=== PATIENT | male | born 1945 | race Caucasian/White ===

== ENCOUNTER 2018-02-11 11:43 | Inpatient (IN) | payer MEDICARE ==
[~2018-02-11] VITALS: Ht 170.2 cm; Wt 105.8 kg
[~2018-02-11 11:43] MED LIST: APIX5TAB PO; ASPI1TAB57 PO; ATOR20TA15 PO; CARV12.52 PO; LISI30TA4 PO; SODI325T PO; TAMS0.4C4 PO
[2018-02-11] MEDS ORDERED: DEXAMETHASONE SOD PHOS 4 MG/ML VIAL IV ONE (12:00)
[2018-02-11] MEDS ORDERED: GLYCOPYRROLATE 1 MG/5 ML SYRINGE IV PUSH ONE (12:00)
[2018-02-11] MEDS ORDERED: NORMOSOL R INJ 1,000 ML IV ONE (12:00)
[2018-02-11] MEDS ORDERED: ROCURONIUM INJ 50 MG/5 ML SYRINGE IV PUSH ONE (12:00)
[2018-02-11] MEDS ORDERED: LIDOCAINE HCL 1% PF 5 ML SYRINGE OTHER ONE (12:00)
[2018-02-11] MEDS ORDERED: PROPOFOL 200 MG/20 ML AMP IV ONE (12:00)
[2018-02-11] MEDS ORDERED: PHENYLEPH/NS 1000 MCG/10 ML SYR IV ONE (12:00)
[2018-02-11] MEDS ORDERED: ONDANSETRON HCL 4 MG/2 ML VIAL IV ONE (12:00)
[2018-02-11] MEDS ORDERED: NEOSTIGMINE 5 MG/5 ML SYRINGE IV PUSH ONE (12:00)
[2018-02-11] MEDS ORDERED: SODIUM CHLORIDE 0.9% IV SCH (12:30)
[2018-02-11] MEDS ORDERED: POVIDONE IODINE 5% (ANTISEPSIS KIT) 4 APPLICATIONS EACH NARE PRN (12:30)
[2018-02-11] MEDS ORDERED: ceFAZolin 2 GM PREMIX 50 ML IV SCH (12:30)
[2018-02-11] MEDS ORDERED: METOPROLOL TARTRATE 25 MG TAB PO PRN (12:30)
[2018-02-11] MEDS ORDERED: LACTATED RINGER'S 1000 ML IV PRN (12:30)
[2018-02-11] MEDS ORDERED: SODIUM CHLORID 0.9% 500 ML IV PRN (12:30)
[2018-02-11] MEDS ORDERED: GENTAMICIN IV SCH (12:30)
[2018-02-11] MEDS ORDERED: CHLORHEXIDINE GLUCONATE 2 % 1 PACK (2 CLOTHS) TOPICAL PRN (12:30)
[2018-02-11] MEDS ORDERED: ACETAMINOPHEN 1000 MG/100 ML 100 ML IV ONE (12:50)
[2018-02-11] MEDS ORDERED: GENTAMICIN INJ 400 MG in SODIUM CHLORIDE 0.9% INJ 100 ML IV SCH (13:00)
[2018-02-11 13:25] LABS: INTERNATIONAL NORMALIZED RATIO 1.1 RATIO; PROTHROMBIN TIME - PATIENT 11.4 SEC (9.8-11.6)
[2018-02-11] MEDS ORDERED: DO NOT ADM ANY ANTICOAGULANT DRUGS PRN (15:27)
[2018-02-11] MEDS ORDERED: MORPHINE SULFATE 4 MG/ML INJ IV PUSH PRN (15:30)
[2018-02-11] MEDS ORDERED: ONDANSETRON HCL 4 MG/2 ML VIAL IV PUSH PRN (15:30)
[2018-02-11] MEDS ORDERED: PANTOPRAZOLE SODIUM 40 MG VIAL IV PUSH SCH (15:30)
[2018-02-11] MEDS ORDERED: *morphine SULFATE 4 MG/ML PERIprocedure ONLY ONE ×3 (15:32→16:04)
--- NOTE | 2018-02-11 15:34 | MP ---
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 PROCEDURE PERFORMED: Retropubic prostatectomy for clinically benign disease. SURGEON: Dr. Adams. OFFICE 365 CONSULTANT: Dr. Willard. ANESTHESIA: General. NOTE IN DETAIL: This 73-year-old gentleman was worked up by us in our office for the above-mentioned procedures. Gradually, he had been failing more conservative measures. Ultrasonic evaluation suggested that this prostate might be a bit too big to do through an intraurethral approach, so a retropubic prostatectomy was suggested and the gentleman consented. He received appropriate preoperative antibiotics in the holding area and was taken to the operating room, given a general anesthetic and a timeout was taken for identification purposes. He was then prepped and draped in a sterile fashion. Cavanaugh catheter inserted. A longitudinal incision made between the symphysis pubis and the umbilicus, carried on down into the space of Retzius, which was then developed and packed off bilaterally. A transverse capsulotomy was then performed and the prostate enucleated in its entirety and submitted for pathologic exam. Hemostasis was tended to with the use electrocautery. Sutures were used in the apices on both the left and the right side of the incision and brought to the midline in a continuous whipstitch fashion. A 22-English 3-way Cavanaugh catheter was inserted, brought into the bladder, inflated to 40 mL and placed on gentle gauze traction and irrigated until clear. A César-Zamora drain was placed through a stab wound in the left lower quadrant and the fascia then closed over with a #1 PDS in a continuous whipstitch. The skin was closed over appropriately and a bandaging applied. He tolerated the procedure well, with an estimated blood loss of about 350 mL or so and was returned to the recovery room in stable condition. Que Adams MD MKD/TL , 03:18 PM , 03:33 PM
[2018-02-11] MEDS ORDERED: *MEPERIDINE 25 MG INJ VIAL PERIprocedural Use ONLY ONE (15:39)
[2018-02-11] MEDS ORDERED: HYDROmorphone HCL PF 0.5 MG/0.5 ML SYRINGE ONE (16:15)
[2018-02-11 16:41] LABS: AUTOMATED NEUTROPHIL # 6.9 TH/MM3 (1.8-7.7); BASOPHIL % 0.3 % (0.0-2.0); EOSINOPHIL # 0.1 TH/MM3 (0-0.4); EOSINOPHIL % 1.3 % (0.0-4.0); HEMATOCRIT 41.7 % (39.0-51.0); HEMOGLOBIN 13.9 GM/DL (13.0-17.0); LYMPHOCYTE # 1.2 TH/MM3 (1.0-4.8); MEAN CELL VOLUME 85.1 FL (80.0-100.0); MEAN CORPUSCULAR HEMOGLOBIN 28.3 PG (27.0-34.0); MEAN CORPUSCULAR HGB CONC 33.3 % (32.0-36.0); MEAN PLATELET VOLUME 9.1 FL (7.0-11.0); MONO % 3.9 % (0.0-8.0); MONOCYTE # 0.3 TH/MM3 (0-0.9); NEUT % 80.5 % (16.0-70.0); PLATELET COUNT 160 TH/MM3 (150-450); RED BLOOD COUNT 4.89 MIL/MM3 (4.50-5.90); WHITE BLOOD COUNT 8.6 TH/MM3 (4.0-11.0)
[2018-02-11 17:03] LABS: BICARBONATE 24.8 MEQ/L (21.0-32.0); CALCIUM 8.5 MG/DL (8.5-10.1); CREATININE 1.8 MG/DL (0.60-1.30)
[2018-02-11 17:55] VITALS: BP 187/91; PULSE 55; RESP 18; TEMP 97.6; O2SAT 98
[2018-02-11] MEDS ORDERED: ENALAPRILAT 1.25 MG/ML VIAL IV PUSH PRN (18:30)
[2018-02-11] MEDS: SODIUM BICARBONATE 325 MG TAB PO SCH (18:37)
[2018-02-11] MEDS ORDERED: NALOXONE HCL 0.4 MG/ML AMP IV PUSH PRN (19:00)
[2018-02-11] MEDS ORDERED: diphenhydrAMINE HCL 50 MG/ML VIAL IV PUSH PRN (19:00)
[2018-02-11] MEDS ORDERED: MORPHINE SULFATE 30 MG/30 ML PCA IV SCH (19:00)
[2018-02-11] MEDS ORDERED: diphenhydrAMINE HCL 25 MG CAP PO PRN (19:00)
[2018-02-11 19:40] VITALS: BP 180/91; PULSE 70; RESP 20; TEMP 98.7; O2SAT 94
[2018-02-11] MEDS: LISINOPRIL 10 MG TAB PO SCH (20:06)
[2018-02-11] MEDS: CARVEDILOL 12.5 MG TAB PO SCH (20:06)
[2018-02-11] MEDS: DOCUSATE SODIUM 100 MG CAP PO SCH (20:06)
[2018-02-11] MEDS: ACETAMINOPHEN 1000 MG/100 ML 100 ML IV SCH (20:07)
[2018-02-11] MEDS ORDERED: ATORVASTATIN 20 MG TAB PO SCH (21:00)
[2018-02-11 21:30] VITALS: BP 170/70
[2018-02-11] MEDS ORDERED: EPINEPHrine HCL (1:10,000) 1 MG/10 ML SYRINGE ONE (21:46)
[2018-02-11] MEDS: PCA - TOTAL MG MORPHINE DELIVERED PER SHIFT SCH (22:00)
[2018-02-11 22:05] VITALS: BP 180/79; PULSE 64; RESP 17; TEMP 97.5; O2SAT 96
[2018-02-11 23:43] VITALS: PULSE 63
[2018-02-12] VITALS (7 sets, daily range): BP systolic 111–162; BP diastolic 61–72; PULSE 63–79; RESP 15–17; TEMP 97.8–98; O2SAT 94–97
[2018-02-12] MEDS: ACETAMINOPHEN 1000 MG/100 ML 100 ML IV SCH ×3 (01:38→14:00)
[2018-02-12] MEDS ORDERED: GENTAMICIN 80 MG PREMIX 100 ML IV SCH (02:00)
[2018-02-12] MEDS: GENTAMICIN INJ 80 MG in SODIUM CHLORIDE 0.9% INJ 100 ML IV SCH ×2 (02:53→14:00)
[2018-02-12] MEDS: PCA - TOTAL MG MORPHINE DELIVERED PER SHIFT SCH ×2 (06:01→13:24)
[2018-02-12 06:08] LABS: AUTOMATED NEUTROPHIL # 9.6 TH/MM3 (1.8-7.7); BASOPHIL % 0.1 % (0.0-2.0); HEMATOCRIT 39.9 % (39.0-51.0); HEMOGLOBIN 13.5 GM/DL (13.0-17.0); LYMPH % 4.7 % (9.0-44.0); LYMPHOCYTE # 0.5 TH/MM3 (1.0-4.8); MEAN CELL VOLUME 84.7 FL (80.0-100.0); MEAN CORPUSCULAR HEMOGLOBIN 28.6 PG (27.0-34.0); MEAN CORPUSCULAR HGB CONC 33.8 % (32.0-36.0); MEAN PLATELET VOLUME 8.9 FL (7.0-11.0); MONO % 5.5 % (0.0-8.0); MONOCYTE # 0.6 TH/MM3 (0-0.9); NEUT % 89.7 % (16.0-70.0); PLATELET COUNT 186 TH/MM3 (150-450); RED BLOOD COUNT 4.71 MIL/MM3 (4.50-5.90); RED CELL DISTRIBUTION WIDTH 14.8 % (11.6-17.2); WHITE BLOOD COUNT 10.7 TH/MM3 (4.0-11.0)
[2018-02-12 06:26] LABS: BICARBONATE 24.3 MEQ/L (21.0-32.0); CALCIUM 8.3 MG/DL (8.5-10.1); CREATININE 1.81 MG/DL (0.60-1.30)
[2018-02-12] MEDS: DOCUSATE SODIUM 100 MG CAP PO SCH (08:43)
[2018-02-12] MEDS: CARVEDILOL 12.5 MG TAB PO SCH (08:43)
[2018-02-12] MEDS: SODIUM BICARBONATE 325 MG TAB PO SCH (08:44)
[2018-02-12] MEDS: LISINOPRIL 10 MG TAB PO SCH (08:44)
[2018-02-12] MEDS ORDERED: INFLUENZA VIRUS VACCINE (QUADRIVALENT) 0.5 ML SYR IM ONE (09:00)
[2018-02-12] MEDS ORDERED: PNEUMOCOCCAL POLYVALENT INJ 25 MCG/0.5 ML SYR IM ONE (09:00)
== END 2018-02-12 15:21 | disposition home health service (06) | DRG 667 ==
LOC: HSDI 11:43 → INTOOBSV 11:43 → OBSVTOIN 16:00 → HCPC 17:30 → N06A 22:06
PROC: 0VT00ZZ Resection of Prostate, Open Approach (ICD-10-PCS; principal; 2018-02-11 13:48)
DX: N32.0 Bladder-neck obstruction (principal); J44.9 Chronic obstructive pulmonary disease, unspecified; I10 Essential (primary) hypertension; I73.9 Peripheral vascular disease, unspecified; I25.10 Atherosclerotic heart disease of native coronary artery without angina pectoris; E78.5 Hyperlipidemia, unspecified; E66.9 Obesity, unspecified; Z86.73 Personal history of transient ischemic attack (TIA), and cerebral infarction without residual deficits; Z68.36 Body mass index [BMI] 36.0-36.9, adult; Z87.891 Personal history of nicotine dependence; Z90.5 Acquired absence of kidney; Z23 Encounter for immunization
CPT/HCPCS: 80048; 85025; 85610; 85730; 86850; 86900; 86901; 86920; 88307; 94150; J0131; J0171; J0690; J1100; J1170; J1580; J2175; J2270; J2370; J2405; J2710; J3010